=== PATIENT | female | born 1965 | race Caucasian/White ===

== ENCOUNTER 2018-02-25 19:26 | Emergency (ER) | payer BC ==
[~2018-02-25] VITALS: Ht 152.4 cm; Wt 94.5 kg
[~2018-02-25 19:26] MED LIST: AUGMENTIN875 MG PO; B12 INJECTIONS; BENTYL20 MG PO; CLONAZEPAM0.5 MG PO; ERGOCALCIF50000 UNIT; ESTRADIOL0.5 MG PO; LEVOTHYROXINE50 MCG; LYRICA25 MG PO; METFORMIN HCL500 M4 PO; METFORMIN HCL500 MG; OMEPRAZOLE40 M1; ROPINIROLE HCL0.5 MG PO; SKELAXIN800 MG PO; TORADOL10 MG PO; VICODIN,LORT1 TABLET PO
[2018-02-25 20:19] LABS: HEMATOCRIT 44.3 % (36.0-46.0); HEMOGLOBIN 15.2 G/DL (11.9-15.5); MCH 33.6 PG (29.0-34.0); MCHC 34.3 G/DL (30.0-36.0); MCV 97.8 FL (83-99); PLATELET COUNT 245 K/uL (156-360); RBC DIS.WIDTH-CV 12.5 % (11.8-14.6); RED BLOOD COUNT 4.53 M/uL (3.80-5.20)
[2018-02-25 20:40] LABS: ALBUMIN 4.5 g/dL (3.2-4.8)
[2018-02-25 20:41] LABS: CHLORIDE 100 mEq/L (99-109); POTASSIUM 4.1 mEq/L (3.7-5.4); SODIUM 138 mEq/L (136-147)
[2018-02-25 20:43] LABS: GLUCOSE 163 mg/dL (70-99); TOTAL PROTEIN 8.7 g/dL (6.4-8.3)
[2018-02-25 20:45] LABS: TOTAL BILIRUBIN 0.6 mg/dL (0.0-1.0)
[2018-02-25 20:46] LABS: ALKALINE PHOSPHATASE 174 IU/L (3-129)
[2018-02-25 20:47] LABS: CREATININE 0.8 mg/dL (0.6-1.3); GFR ESTIMATE (CALCULATED) > 59 mL/min/
[2018-02-25 20:48] LABS: AST (GOT) 118 IU/L (2-34); UREA NITROGEN (BUN) 11 mg/dL (9-23)
[2018-02-25 20:49] LABS: ALT (GPT) 123 IU/L (3-49)
[2018-02-25 20:55] LABS: QUANTITATIVE HCG < 4.0 MIU/ML
[2018-02-25 21:46] LABS: LIPASE 39 U/L (1.0-51.0)
[2018-02-25 23:18] LABS: APPEARANCE CLEAR ((CLEAR)); BILIRUBIN NEGATIVE; BLOOD NEGATIVE; COLOR YELLOW ((YELLOW)); GLUCOSE (STRIP) NEGATIVE; KETONES 5; LEUKOCYTES NEGATIVE; NITRITE NEGATIVE; PROTEIN (STRIP) NEGATIVE; SPECIFIC GRAVITY 1.011 (1.000-1.030); UCUL ADDED? NO; UROBILINOGEN 0.2 MG/DL (0.2-1.0)
[2018-02-25] MEDS ORDERED: PERCOCET 5/31 TABLET PO (23:42)
[2018-02-25] MEDS ORDERED: BENTYL20 MG PO (23:42)
[2018-02-25 23:55] VITALS: BP 129/87
== END 2018-02-26 00:05 | disposition home or self-care (01) ==
LOC: EME 19:26
DX: R10.32 Left lower quadrant pain (principal); E11.9 Type 2 diabetes mellitus without complications; F32.9 Major depressive disorder, single episode, unspecified; G25.81 Restless legs syndrome; Z87.891 Personal history of nicotine dependence; Z90.49 Acquired absence of other specified parts of digestive tract; Z90.710 Acquired absence of both cervix and uterus; Z79.84 Long term (current) use of oral hypoglycemic drugs; Z88.8 Allergy status to other drugs, medicaments and biological substances
CPT/HCPCS: 74176; 80053; 81003; 83690; 84702; 85027; 99281; 99284; J1885